=== PATIENT | male | born 1995 | race African-American/Black ===

== ENCOUNTER 2018-11-01 14:11 | Emergency (ER) | payer OTHER ==
[~2018-11-01] VITALS: Ht 177.8 cm; Wt 72.6 kg
[2018-11-01 14:24] VITALS: BP 149/83
--- NOTE | 2018-11-01 14:32 | ED Upper Extremity ---
General Chief Complaint: Upper Extremity Stated Complaint: RT SHOULDER PAIN History of Present Illness Date Seen by Provider: Nov 01, 2018 Time Seen by Provider: 14:20 Initial Comments The patient is a very pleasant 23-year-old male who presents for evaluation of a right shoulder injury. 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 He came to this emergency department previously and had asked for x-rays performed in May 2018 that showed a 5 mm before meals separation on the right. Since that time he has been having somewhat chronic pain. He states that he has pretty good range of motion but that when he does certain things such as pushups he has exquisite pain. He states that he has a friend of his who has similar injury which required surgery and he is here to facilitate orthopedic follow-up. He does not believe that he needs additional imaging at this time as there is been no new injury. He is alert and oriented 4, calm, and appears to be in no distress. He tells me that he was doing physical therapy for a while and seemed to be helping but is not currently in physical therapy. Pain/Injury Location: right shoulder Method of Injury: sports injury Modifying Factors: Improves With Movement, Improves With Rest Allergies and Home Medications Patient Home Medication List Home Medication List Reviewed: Yes Review of Systems Constitutional: no symptoms reported EENTM: no symptoms reported Respiratory: no symptoms reported Cardiovascular: no symptoms reported Gastrointestinal: no symptoms reported Genitourinary: no symptoms reported Musculoskeletal: joint pain Skin: no symptoms reported Psychiatric/Neurological: No Symptoms Reported All Other Systems Reviewed Negative Unless Noted: Yes Past Sazplay-Piazoi-Dmsust Hx Past Med/Social Hx: Reviewed Nursing Past Med/Soc Hx Patient Social History Recent Foreign Travel: No Contact w/Someone Who Travel: No Physical Exam Vital Signs Vital Signs - First Documented 11/01/18 14:24 Temp 98.2 Pulse 81 Resp 16 B/P (MAP) 149/83 (105) Pulse Ox 99 O2 Delivery Room Air Capillary Refill : NONE Height, Weight, BMI Height: '" Weight: lbs. oz. kg; BMI Method: General Appearance: WD/WN, no apparent distress HEENT: PERRL/EOMI, normal ENT inspection, TMs normal, pharynx normal Neck: non-tender, full range of motion, supple, normal inspection Cardiovascular: regular rate, rhythm, no edema, no JVD Respiratory: chest non-tender, lungs clear, normal breath sounds, no respiratory distress, no accessory muscle use Gastrointestinal: normal bowel sounds, non tender, soft Shoulder: normal ROM, bone tenderness (at right ac joint) Elbow/Forearm: normal inspection, non-tender, no evidence of injury, normal ROM Wrist: Yes normal inspection, Yes non-tender Hand: normal inspection, non-tender, no evidence of injury, normal ROM Neurologic/Tendon: normal sensation, normal motor functions, normal tendon functions 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 Kendrick. He states to have the patient call the office to set up an appointment with Dr. Manjit Germain as he is the shoulder specialist. Answers been no new injury and this is been going on for months with swelling is not necessarily needed per Dr. Kendrick. He advises the pt to call [phone]. Departure Impression Primary Impression: Separation of right acromioclavicular joint Additional Impression: Chronic shoulder pain Disposition: 01 HOME, SELF-CARE Condition: Stable Departure-Patient Inst. Referrals: DORIAN GERMAIN MD Call [phone] to be seen NO,LOCAL PHYSICIAN (PCP) Primary Care Physician Add. Discharge Instructions: Advised patient to take ibuprofen and rest. He has been given the phone number for Dr. Manjit Germain from orthopedics for follow-up who can help determine if he needs definitive surgical management. Advised the patient to return to the emergency department for any new or worsening symptoms. He is stable for discharge at this time. SHELLEY MCCONNELL DO Nov 01, 2018 14:32
[2018-11-01 14:44] VITALS: BP 149/83
== END 2018-11-01 14:44 | disposition home or self-care (01) ==
LOC: ER FS 14:17 → ER 14:44
DX: S43.102A Unspecified dislocation of left acromioclavicular joint, initial encounter (principal); M25.511 Pain in right shoulder; G89.29 Other chronic pain; X58.XXXA Exposure to other specified factors, initial encounter; Y93.61 Activity, american tackle football
CPT/HCPCS: 99282